=== PATIENT | male | born 1960 | race Caucasian/White ===

== ENCOUNTER → 2017-10-21 | Day surgery (SDC) | payer BC ==
[~2017-10-21] VITALS: Ht 172.7 cm; Wt 91.4 kg
[~2017-10-21] MED LIST: ACETAMINOPHEN 1000 MG/100 ML 100 ML IV SCH; BUPIVACAINE/EPINEPHRINE 0.25% 50 ML VIAL ONE; CETI10 PO; CHLORHEXIDINE GLUCONATE 2 % 1 PACK (2 CLOTHS) TOPICAL PRN; DEXAMETHASONE SOD PHOS 4 MG/ML VIAL IV ONE; DO NOT ADM ANY ANTICOAGULANT DRUGS PRN; GLUCTAB PO; KETOROLAC TROMETHAMINE 30 MG/ML (IVP) VIAL IV PUSH ONE; LACTATED RINGER'S 1000 ML IV PRN; LIDOCAINE HCL 1% PF 5 ML SYRINGE OTHER ONE; METOPROLOL TARTRATE 25 MG TAB PO PRN; MORPHINE SULFATE 2 MG/ML INJ IV PUSH PRN; MORPHINE SULFATE 4 MG/ML INJ IV PUSH PRN; ONDANSETRON HCL 4 MG/2 ML VIAL IV PUSH ONE; ONDANSETRON HCL 4 MG/2 ML VIAL IV PUSH PRN; POVIDONE IODINE 5% (ANTISEPSIS KIT) 4 APPLICATIONS EACH NARE PRN; PROPOFOL 200 MG/20 ML AMP IV ONE; SODIUM CHLORID 0.9% 500 ML IV PRN; ceFAZolin 2 GM PREMIX 50 ML IV SCH; ePHEDrine/NS 25 MG/5 ML SYRINGE IV ONE; fentaNYL CITRATE 250 MCG/5 ML AMP ONE; oxyCODONE/ACETAMINOPHEN 5 MG/325 MG TAB PO PRN
--- NOTE | 2017-10-21 11:05 | PD.OP ---
cc: Alex Fiore MD Operative Report Date of Surgery: Oct 21, 2017 Preoperative Diagnosis: (1) Umbilical hernia Postoperative Diagnosis: (1) Umbilical hernia Procedure: Umbilical hernia repair with mesh Anesthesia: GEN Surgeon: Alex Fiore Rn Ent(s): Staff Operation and Findings: EBL: 5cc Operative findings: 1-2 cm umbilical hernia Procedure in detail: The patient was taken to the operating room and placed in supine position. Gen. anesthesia was induced and the abdomen was prepped and draped in usual sterile fashion. A surgical timeout was performed to verify correct patient procedure and site. The sac was injected in the skin and subcutaneous tissue inferior to the umbilicus and a curvilinear incision made. Sharp dissection was carried out down to the underlying fascia. The umbilical skin was from underlying hernia contents. There was a 1-2 cm umbilical fascial defect with incarcerated preperitoneal fat. After separation of umbilical skin from the preperitoneal fat to fat was reduced back into the abdominal cavity. The fascial defect was closed transversely with interrupted 0 Ethibond sutures. The fatty tissue surrounding the repair was cleared away with electrocautery. An approximately 4 x 6 cm portion of ultra Pro advanced mesh was used to reinforce the repair and secured in place at each corner with 0 Ethibond suture. Hemostasis was achieved. The umbilical skin was tacked down with 3-0 Vicryl suture. Skin closed with subcuticular 4-0 Monocryl and Steri-Strips. A pressure dressing and the umbilicus was placed. The patient tolerated procedure well was x-rayed and taken to PACU in stable condition. Alex Fiore MD Oct 21, 2017 11:05
[2017-10-21 12:33] VITALS: BP 117/64; PULSE 49; RESP 17; TEMP 97.2; O2SAT 95
== END | disposition home or self-care (01) ==
LOC: HSDC 07:37
PROVIDERS: ATTEND Surgery
DX: K42.9 Umbilical hernia without obstruction or gangrene (principal); N40.0 Benign prostatic hyperplasia without lower urinary tract symptoms; R31.29 Other microscopic hematuria; E11.9 Type 2 diabetes mellitus without complications; E66.3 Overweight; Z68.29 Body mass index [BMI] 29.0-29.9, adult; N52.9 Male erectile dysfunction, unspecified
CPT/HCPCS: 00830; 49585; C1781; J0131; J0690; J1100; J1885; J2405; J3010